=== PATIENT | male | born 1960 | race Caucasian/White ===

== ENCOUNTER 2022-06-12 18:48 | Inpatient (IN) | payer OTHER ==
[2022-06-12 19:36] VITALS: BMI 22.8
[2022-06-12] MEDS ORDERED: IBUPROFEN 400 MG TABLET (FP) PO PRN (22:51)
[2022-06-12] MEDS ORDERED: MAG HYDROX/AL HYDROX/SIMETH 30 ML UNIT-DOSE CUP PO PRN (22:51)
[2022-06-12] MEDS ORDERED: MAGNESIUM HYDROX 2400MG/30ML ORAL SUSPENSION 30 ML CUP PO PRN (22:51)
[2022-06-12] MEDS ORDERED: P-EPHED 60MG/TRIPROLIDI 2.5MG TABLET PO PRN (22:51)
[2022-06-12] MEDS ORDERED: ACETAMINOPHEN 325 MG TABLET (FP) PO PRN ×2 (22:51)
[2022-06-12] MEDS ORDERED: LOPERAMIDE HCL 2 MG CAPSULE PO PRN (22:51)
[2022-06-12] MEDS ORDERED: hydrOXYzine PAMOATE 25 MG CAPSULE (FP) PO PRN (22:51)
[2022-06-12] MEDS ORDERED: guaiFENesin 200 MG/10 ML 10 ML UNIT-DOSE CUPS PO PRN (22:51)
[2022-06-12] MEDS ORDERED: POLYETHYLENE GLYCOL (HEALTHYLAX) 3350 17 GM PACKET PO PRN (22:51)
[2022-06-12] MEDS ORDERED: BISMUTH SUBSALICYLATE 524 MG/30 ML PO PRN (22:51)
[2022-06-12] MEDS ORDERED: ONDANSETRON *ODT* 4 MG TABLET SL PRN (22:51)
[2022-06-12] MEDS ORDERED: DICYCLOMINE HCL 10 MG CAPSULE PO PRN (22:51)
[2022-06-12] MEDS ORDERED: BENZOCAINE/MENTHOL (CHLORASEPTIC ) LOZENGE MM PRN (22:51)
[2022-06-12] MEDS ORDERED: BACITRACIN 15 GM TUBE TOPICAL OINTMENT TP SCH (23:15)
[2022-06-13] MEDS ORDERED: BACITRACIN 0.9 GM PACKET TP SCH (00:08)
[2022-06-13] MEDS: diazePAM 5 MG TABLET PO SCH ×5 (00:09→22:20)
[2022-06-13] MEDS: PRENATAL VITAMINS W/ FOLIC ACID TABLET (FP) PO SCH (10:18)
[2022-06-13] MEDS: BACITRACIN 0.9 GM PACKET TP SCH ×2 (10:20→22:19)
[2022-06-13 10:30] LABS: HEMATOCRIT 37.1 % (35.4-49); MCH 29.5 pg (25.7-33.7); MCHC 32.5 g/dl (32.0-35.9); PLATELET COUNT 220 10^3/uL (134-434); RBC 4.08 M/mm3 (4.00-5.60); RDW 13.2 % (11.9-15.9); WHITE BLOOD COUNT 11.5 K/mm3 (4.0-10.0)
[2022-06-13 10:34] LABS: ALBUMIN 2.9 g/dl (3.4-5.0); BLOOD UREA NITROGEN 22.7 mg/dL (7-18); CALCIUM 9.1 mg/dL (8.5-10.1)
[2022-06-13 10:37] LABS: CREATININE 0.8 mg/dL (0.55-1.3)
[2022-06-13 10:39] LABS: TOT PROT 6.6 g/dl (6.4-8.2)
[2022-06-13 10:42] LABS: BILIRUBIN,TOTAL 0.6 mg/dL (0.2-1)
[2022-06-13] MEDS ORDERED: POTASSIUM CHLORIDE TABS 20 MEQ TABLET.ER (FP) PO ONE (14:36)
[2022-06-13] MEDS: THIAMINE HCL 100 MG TABLET (FP) PO SCH (22:19)
[2022-06-13] MEDS: MELATONIN 5 MG TABLETS PO PRN (22:19)
[2022-06-13] MEDS: POTASSIUM CHLORIDE TABS 20 MEQ TABLET.ER (FP) PO SCH (22:37)
[2022-06-14] MEDS: diazePAM 5 MG TABLET PO SCH ×3 (05:36→22:27)
[2022-06-14] MEDS: METHOCARBAMOL 500 MG TABLET PO PRN (10:20)
[2022-06-14] MEDS: diazePAM 5 MG TABLET PO PRN (10:20)
[2022-06-14] MEDS: POTASSIUM CHLORIDE TABS 20 MEQ TABLET.ER (FP) PO SCH ×2 (10:20→22:27)
[2022-06-14] MEDS: PRENATAL VITAMINS W/ FOLIC ACID TABLET (FP) PO SCH (10:20)
[2022-06-14] MEDS: BACITRACIN 0.9 GM PACKET TP SCH ×2 (10:21→22:26)
[2022-06-14] MEDS: THIAMINE HCL 100 MG TABLET (FP) PO SCH (22:26)
[2022-06-14] MEDS: MELATONIN 5 MG TABLETS PO PRN (22:27)
[2022-06-15] MEDS: diazePAM 5 MG TABLET PO SCH ×2 (05:58→17:05)
[2022-06-15] MEDS: POTASSIUM CHLORIDE TABS 20 MEQ TABLET.ER (FP) PO SCH ×2 (10:22→22:09)
[2022-06-15] MEDS: PRENATAL VITAMINS W/ FOLIC ACID TABLET (FP) PO SCH (10:22)
[2022-06-15] MEDS: BACITRACIN 0.9 GM PACKET TP SCH ×2 (10:23→22:09)
[2022-06-15] MEDS: MELATONIN 5 MG TABLETS PO PRN (22:09)
[2022-06-15] MEDS: THIAMINE HCL 100 MG TABLET (FP) PO SCH (22:09)
[2022-06-15] MEDS: diazePAM 5 MG TABLET PO PRN (22:09)
[2022-06-16] MEDS ORDERED: diazePAM 5 MG TABLET PO ONE (06:00)
[2022-06-16] MEDS: PRENATAL VITAMINS W/ FOLIC ACID TABLET (FP) PO SCH (10:44)
[2022-06-16] MEDS: POTASSIUM CHLORIDE TABS 20 MEQ TABLET.ER (FP) PO SCH (10:44)
[2022-06-16] MEDS: BACITRACIN 0.9 GM PACKET TP SCH ×2 (10:45→21:34)
[2022-06-16] MEDS: MELATONIN 5 MG TABLETS PO PRN (21:34)
[2022-06-16] MEDS: IBUPROFEN 600 MG TABLET (FP) PO PRN (21:34)
[2022-06-16] MEDS: METHOCARBAMOL 500 MG TABLET PO PRN (21:34)
[2022-06-16] MEDS: THIAMINE HCL 100 MG TABLET (FP) PO SCH (21:35)
[2022-06-17] MEDS: PRENATAL VITAMINS W/ FOLIC ACID TABLET (FP) PO SCH (09:52)
[2022-06-17] MEDS: BACITRACIN 0.9 GM PACKET TP SCH ×2 (09:52→21:34)
[2022-06-17] MEDS ORDERED: PNEUMOC 20-VAL CONJ-DIP CRM/PF 0.5 ML SYRINGE IM ONE (12:00)
[2022-06-17] MEDS: MELATONIN 5 MG TABLETS PO PRN (21:34)
[2022-06-17] MEDS: THIAMINE HCL 100 MG TABLET (FP) PO SCH (21:34)
[2022-06-17] MEDS: METHOCARBAMOL 500 MG TABLET PO PRN (21:34)
[2022-06-18] MEDS: BACITRACIN 0.9 GM PACKET TP SCH ×2 (09:31→21:02)
[2022-06-18] MEDS: PRENATAL VITAMINS W/ FOLIC ACID TABLET (FP) PO SCH (09:31)
[2022-06-18] MEDS: THIAMINE HCL 100 MG TABLET (FP) PO SCH (21:02)
[2022-06-18] MEDS: MELATONIN 5 MG TABLETS PO PRN (21:02)
[2022-06-18] MEDS: IBUPROFEN 600 MG TABLET (FP) PO PRN (21:02)
[2022-06-19] MEDS: PRENATAL VITAMINS W/ FOLIC ACID TABLET (FP) PO SCH (10:11)
[2022-06-19] MEDS: BACITRACIN 0.9 GM PACKET TP SCH ×2 (10:11→21:21)
[2022-06-19] MEDS: MELATONIN 5 MG TABLETS PO PRN (21:20)
[2022-06-19] MEDS: THIAMINE HCL 100 MG TABLET (FP) PO SCH (21:20)
[2022-06-20] MEDS: BACITRACIN 0.9 GM PACKET TP SCH ×2 (09:29→21:23)
[2022-06-20] MEDS: PRENATAL VITAMINS W/ FOLIC ACID TABLET (FP) PO SCH (09:29)
[2022-06-20] MEDS: MELATONIN 5 MG TABLETS PO PRN (21:24)
[2022-06-20] MEDS: THIAMINE HCL 100 MG TABLET (FP) PO SCH (21:25)
[2022-06-21] MEDS: PRENATAL VITAMINS W/ FOLIC ACID TABLET (FP) PO SCH (09:46)
[2022-06-21] MEDS: BACITRACIN 0.9 GM PACKET TP SCH ×2 (09:46→21:12)
[2022-06-21] MEDS: THIAMINE HCL 100 MG TABLET (FP) PO SCH (21:12)
[2022-06-21] MEDS: MELATONIN 5 MG TABLETS PO PRN (21:12)
[2022-06-22] MEDS: BACITRACIN 0.9 GM PACKET TP SCH ×2 (09:47→21:19)
[2022-06-22] MEDS: PRENATAL VITAMINS W/ FOLIC ACID TABLET (FP) PO SCH (09:47)
[2022-06-22] MEDS: THIAMINE HCL 100 MG TABLET (FP) PO SCH (21:19)
[2022-06-22] MEDS: MELATONIN 5 MG TABLETS PO PRN (21:19)
[2022-06-23] MEDS: BACITRACIN 0.9 GM PACKET TP SCH ×2 (09:45→21:45)
[2022-06-23] MEDS: PRENATAL VITAMINS W/ FOLIC ACID TABLET (FP) PO SCH (09:45)
[2022-06-23] MEDS: MELATONIN 5 MG TABLETS PO PRN (21:45)
[2022-06-23] MEDS: THIAMINE HCL 100 MG TABLET (FP) PO SCH (21:45)
[2022-06-24] MEDS: PRENATAL VITAMINS W/ FOLIC ACID TABLET (FP) PO SCH (09:25)
[2022-06-24] MEDS: BACITRACIN 0.9 GM PACKET TP SCH ×2 (09:26→21:26)
[2022-06-24] MEDS: MELATONIN 5 MG TABLETS PO PRN (21:25)
[2022-06-24] MEDS: THIAMINE HCL 100 MG TABLET (FP) PO SCH (21:25)
[2022-06-25] MEDS: PRENATAL VITAMINS W/ FOLIC ACID TABLET (FP) PO SCH (09:42)
[2022-06-25] MEDS: BACITRACIN 0.9 GM PACKET TP SCH ×2 (09:42→21:26)
[2022-06-25] MEDS: MELATONIN 5 MG TABLETS PO PRN (21:26)
[2022-06-25] MEDS: THIAMINE HCL 100 MG TABLET (FP) PO SCH (21:26)
[2022-06-26] MEDS: BACITRACIN 0.9 GM PACKET TP SCH ×2 (09:43→21:10)
[2022-06-26] MEDS: PRENATAL VITAMINS W/ FOLIC ACID TABLET (FP) PO SCH (09:43)
[2022-06-26] MEDS: THIAMINE HCL 100 MG TABLET (FP) PO SCH (21:10)
[2022-06-26] MEDS: MELATONIN 5 MG TABLETS PO PRN (21:10)
[2022-06-27] MEDS: BACITRACIN 0.9 GM PACKET TP SCH ×2 (09:00→23:14)
[2022-06-27] MEDS: PRENATAL VITAMINS W/ FOLIC ACID TABLET (FP) PO SCH (09:00)
[2022-06-27] MEDS: THIAMINE HCL 100 MG TABLET (FP) PO SCH (23:15)
[2022-06-28] MEDS: PRENATAL VITAMINS W/ FOLIC ACID TABLET (FP) PO SCH (09:47)
[2022-06-28] MEDS: BACITRACIN 0.9 GM PACKET TP SCH ×2 (09:47→21:29)
[2022-06-28] MEDS: MELATONIN 5 MG TABLETS PO PRN (21:29)
[2022-06-28] MEDS: THIAMINE HCL 100 MG TABLET (FP) PO SCH (21:29)
[2022-06-29] MEDS: BACITRACIN 0.9 GM PACKET TP SCH ×2 (09:57→21:21)
[2022-06-29] MEDS: PRENATAL VITAMINS W/ FOLIC ACID TABLET (FP) PO SCH (09:57)
[2022-06-29] MEDS: MELATONIN 5 MG TABLETS PO PRN (21:20)
[2022-06-29] MEDS: THIAMINE HCL 100 MG TABLET (FP) PO SCH (21:20)
[2022-06-30] MEDS: BACITRACIN 0.9 GM PACKET TP SCH ×2 (10:10→21:21)
[2022-06-30] MEDS: PRENATAL VITAMINS W/ FOLIC ACID TABLET (FP) PO SCH (10:10)
[2022-06-30] MEDS: MELATONIN 5 MG TABLETS PO PRN (21:21)
[2022-06-30] MEDS: THIAMINE HCL 100 MG TABLET (FP) PO SCH (21:21)
[2022-07-01] MEDS: IBUPROFEN 600 MG TABLET (FP) PO PRN (06:37)
[2022-07-01] MEDS: PRENATAL VITAMINS W/ FOLIC ACID TABLET (FP) PO SCH (09:47)
[2022-07-01] MEDS: BACITRACIN 0.9 GM PACKET TP SCH ×2 (09:47→21:51)
[2022-07-01] MEDS: MELATONIN 5 MG TABLETS PO PRN (21:51)
[2022-07-01] MEDS: THIAMINE HCL 100 MG TABLET (FP) PO SCH (21:51)
[2022-07-02] MEDS: PRENATAL VITAMINS W/ FOLIC ACID TABLET (FP) PO SCH (09:55)
[2022-07-02] MEDS: BACITRACIN 0.9 GM PACKET TP SCH ×2 (09:55→21:22)
[2022-07-02] MEDS: THIAMINE HCL 100 MG TABLET (FP) PO SCH (21:22)
[2022-07-02] MEDS: MELATONIN 5 MG TABLETS PO PRN (21:22)
[2022-07-03] MEDS: PRENATAL VITAMINS W/ FOLIC ACID TABLET (FP) PO SCH (09:31)
[2022-07-03] MEDS: BACITRACIN 0.9 GM PACKET TP SCH ×2 (09:31→21:34)
[2022-07-03] MEDS: THIAMINE HCL 100 MG TABLET (FP) PO SCH (21:35)
[2022-07-03] MEDS: MELATONIN 5 MG TABLETS PO PRN (21:35)
[2022-07-04] MEDS: PRENATAL VITAMINS W/ FOLIC ACID TABLET (FP) PO SCH (09:53)
[2022-07-04] MEDS: BACITRACIN 0.9 GM PACKET TP SCH ×2 (09:53→21:38)
[2022-07-04] MEDS: MELATONIN 5 MG TABLETS PO PRN (21:08)
[2022-07-04] MEDS: THIAMINE HCL 100 MG TABLET (FP) PO SCH (21:08)
[2022-07-05] MEDS: BACITRACIN 0.9 GM PACKET TP SCH ×2 (09:34→21:33)
[2022-07-05] MEDS: PRENATAL VITAMINS W/ FOLIC ACID TABLET (FP) PO SCH (09:34)
[2022-07-05] MEDS: MELATONIN 5 MG TABLETS PO PRN (21:29)
[2022-07-05] MEDS: THIAMINE HCL 100 MG TABLET (FP) PO SCH (21:29)
[2022-07-06] MEDS: PRENATAL VITAMINS W/ FOLIC ACID TABLET (FP) PO SCH (09:47)
[2022-07-06] MEDS: BACITRACIN 0.9 GM PACKET TP SCH ×2 (09:47→21:33)
[2022-07-06] MEDS: MELATONIN 5 MG TABLETS PO PRN (21:15)
[2022-07-06] MEDS: THIAMINE HCL 100 MG TABLET (FP) PO SCH (21:15)
[2022-07-07] MEDS: BACITRACIN 0.9 GM PACKET TP SCH ×2 (10:00→23:20)
[2022-07-07] MEDS: PRENATAL VITAMINS W/ FOLIC ACID TABLET (FP) PO SCH (10:00)
[2022-07-07] MEDS: IBUPROFEN 600 MG TABLET (FP) PO PRN (10:01)
[2022-07-07] MEDS ORDERED: cloNIDine HCL 0.1 MG TABLET PO PRN (13:46)
[2022-07-07] MEDS: cloNIDine HCL 0.1 MG TABLET PO PRN (15:23)
[2022-07-07] MEDS: THIAMINE HCL 100 MG TABLET (FP) PO SCH (23:20)
[2022-07-08] MEDS: BACITRACIN 0.9 GM PACKET TP SCH ×2 (09:41→21:04)
[2022-07-08] MEDS: PRENATAL VITAMINS W/ FOLIC ACID TABLET (FP) PO SCH (09:41)
[2022-07-08] MEDS: THIAMINE HCL 100 MG TABLET (FP) PO SCH (21:04)
[2022-07-08] MEDS: cloNIDine HCL 0.1 MG TABLET PO PRN (21:05)
[2022-07-09] MEDS: BACITRACIN 0.9 GM PACKET TP SCH ×2 (10:05→21:37)
[2022-07-09] MEDS: PRENATAL VITAMINS W/ FOLIC ACID TABLET (FP) PO SCH (10:05)
[2022-07-09] MEDS: THIAMINE HCL 100 MG TABLET (FP) PO SCH (21:37)
[2022-07-09] MEDS: MELATONIN 5 MG TABLETS PO PRN (21:38)
[2022-07-09] MEDS: cloNIDine HCL 0.1 MG TABLET PO PRN (22:12)
[2022-07-10] MEDS: PRENATAL VITAMINS W/ FOLIC ACID TABLET (FP) PO SCH (09:59)
[2022-07-10] MEDS: BACITRACIN 0.9 GM PACKET TP SCH ×2 (09:59→21:14)
[2022-07-10] MEDS: MELATONIN 5 MG TABLETS PO PRN (21:13)
[2022-07-10] MEDS: THIAMINE HCL 100 MG TABLET (FP) PO SCH (21:13)
[2022-07-10] MEDS: cloNIDine HCL 0.1 MG TABLET PO PRN (21:14)
[2022-07-11] MEDS: PRENATAL VITAMINS W/ FOLIC ACID TABLET (FP) PO SCH (09:52)
[2022-07-11] MEDS: BACITRACIN 0.9 GM PACKET TP SCH ×2 (09:52→21:17)
[2022-07-11] MEDS: THIAMINE HCL 100 MG TABLET (FP) PO SCH (21:17)
[2022-07-11] MEDS: cloNIDine HCL 0.1 MG TABLET PO PRN (21:17)
[2022-07-11] MEDS: MELATONIN 5 MG TABLETS PO PRN (21:18)
[2022-07-12] MEDS: PRENATAL VITAMINS W/ FOLIC ACID TABLET (FP) PO SCH (09:39)
[2022-07-12] MEDS: BACITRACIN 0.9 GM PACKET TP SCH ×2 (09:39→21:04)
[2022-07-12] MEDS: MELATONIN 5 MG TABLETS PO PRN (21:04)
[2022-07-12] MEDS: THIAMINE HCL 100 MG TABLET (FP) PO SCH (21:04)
[2022-07-13] MEDS: BACITRACIN 0.9 GM PACKET TP SCH ×2 (09:59→21:15)
[2022-07-13] MEDS: PRENATAL VITAMINS W/ FOLIC ACID TABLET (FP) PO SCH (09:59)
[2022-07-13] MEDS: THIAMINE HCL 100 MG TABLET (FP) PO SCH (21:15)
[2022-07-14 07:20] VITALS: BP 119/76; PULSE 87; RESP 17; TEMP 97.2
== END 2022-07-14 09:37 | disposition home or self-care (01) | DRG 895 ==
LOC: YASAS 18:48 → Y6N 23:24 → Y3E 06-16 14:41
PROVIDERS: ADMIT Allergy & Immunology; ATTEND Allergy & Immunology
PROC: HZ2ZZZZ Detoxification Services for Substance Abuse Treatment (ICD-10-PCS; 2022-06-12)
PROC: HZ42ZZZ Group Counseling for Substance Abuse Treatment, Cognitive-Behavioral (ICD-10-PCS; principal; 2022-06-16)
DX: F10.20 Alcohol dependence, uncomplicated (principal); F17.210 Nicotine dependence, cigarettes, uncomplicated; E87.6 Hypokalemia; R03.0 Elevated blood-pressure reading, without diagnosis of hypertension; Z28.310 Unvaccinated for COVID-19; Z28.9 Immunization not carried out for unspecified reason; Z59.00 Homelessness unspecified; Z56.0 Unemployment, unspecified
CPT/HCPCS: 36415; 80053; 84132; 85027; 86780; 87811; 90677; C9803-CS; U0003; U0005